=== PATIENT | male | born 1955 | race Caucasian/White ===

== ENCOUNTER 2021-09-18 15:40 | Inpatient (IN) | payer OTHER ==
[2021-09-18 17:34] VITALS: BMI 24.6
[2021-09-18] MEDS ORDERED: BISMUTH SUBSALICYLATE 524 MG/30 ML PO PRN (19:23)
[2021-09-18] MEDS ORDERED: ACETAMINOPHEN 325 MG TABLET (FP) PO PRN ×2 (19:23)
[2021-09-18] MEDS ORDERED: MAG HYDROX/AL HYDROX/SIMETH 30 ML UNIT-DOSE CUP PO PRN (19:23)
[2021-09-18] MEDS ORDERED: ONDANSETRON *ODT* 4 MG TABLET SL PRN (19:23)
[2021-09-18] MEDS ORDERED: NICOTINE 10 MG CARTRIDGE (INHALER) IH PRN (19:23)
[2021-09-18] MEDS ORDERED: MAGNESIUM HYDROX 2400MG/30ML ORAL SUSPENSION 30 ML CUP PO PRN (19:23)
[2021-09-18] MEDS ORDERED: MAGNESIUM CITRATE 300 ML BOTTLE PO PRN (19:23)
[2021-09-18] MEDS ORDERED: MENTHOL/PHENOL 1 EACH UD MM PRN (19:23)
[2021-09-18] MEDS: GABAPENTIN 100 MG CAPSULE PO SCH (22:19)
[2021-09-18] MEDS: ATORVASTATIN CA 80 MG TABLET (FP) PO SCH (22:19)
[2021-09-18] MEDS: THIAMINE HCL 100 MG TABLET (FP) PO SCH (22:20)
[2021-09-18] MEDS: MELATONIN 5 MG TABLETS PO SCH (22:20)
[2021-09-18] MEDS: hydrOXYzine PAMOATE 25 MG CAPSULE (FP) PO SCH (22:20)
[2021-09-18] MEDS: METHYL SALICYLATE/MENTHOL OINT 30 GM TUBE TP SCH (22:21)
[2021-09-19] MEDS: hydrOXYzine PAMOATE 25 MG CAPSULE (FP) PO SCH ×5 (06:52→22:12)
[2021-09-19] MEDS: GABAPENTIN 100 MG CAPSULE PO SCH ×3 (06:52→22:12)
[2021-09-19] MEDS: metFORMIN HCL 500 MG TABLET (FP) PO SCH ×2 (06:53→22:12)
[2021-09-19] MEDS: LEVOTHYROXINE NA 100 MCG TABLET (FP) PO SCH (08:01)
[2021-09-19] MEDS ORDERED: AMMONIUM LACTATE 12% LOTION 225 GM BOTTLE TP PRN (10:00)
[2021-09-19 11:54] LABS: HEMATOCRIT 31.4 % (35.4-49); HEMOGLOBIN 10.4 GM/dL (11.7-16.9); MCH 29.8 pg (25.7-33.7); MCHC 33.2 g/dl (32.0-35.9); PLATELET COUNT 195 10^3/uL (134-434); RBC 3.49 M/mm3 (4.00-5.60); RDW 14.6 % (11.9-15.9); WHITE BLOOD COUNT 8.4 K/mm3 (4.0-10.0)
[2021-09-19 12:13] LABS: CALCIUM 9.3 mg/dL (8.5-10.1)
[2021-09-19] MEDS: LISINOPRIL 5 MG TABLET PO SCH (12:13)
[2021-09-19] MEDS: ASPIRIN COATED 81 MG TABLET.EC PO SCH (12:14)
[2021-09-19] MEDS: PRENATAL VITAMINS W/ FOLIC ACID TABLET (FP) PO SCH (12:14)
[2021-09-19] MEDS: METHYL SALICYLATE/MENTHOL OINT 30 GM TUBE TP SCH ×2 (12:15→22:35)
[2021-09-19] MEDS: FLUTICASONE PROP 0.05% 16 GM NASAL SPRAY NS SCH (12:15)
[2021-09-19 12:16] LABS: CREATININE 1.4 mg/dL (0.55-1.3)
[2021-09-19 12:18] LABS: BILIRUBIN,TOTAL 0.3 mg/dL (0.2-1); TOT PROT 6.8 g/dl (6.4-8.2)
[2021-09-19] MEDS ORDERED: cloNIDine HCL 0.1 MG TABLET PO PRN (13:09)
[2021-09-19] MEDS ORDERED: clonazePAM 0.5 MG ODT TABLETS SL PRN (13:09)
[2021-09-19] MEDS ORDERED: methaDONE HCL 10 MG TABLET (FOR DETOX USE ONLY) PO ONE (13:45)
[2021-09-19] MEDS: ATORVASTATIN CA 80 MG TABLET (FP) PO SCH (22:12)
[2021-09-19] MEDS: MELATONIN 5 MG TABLETS PO SCH (22:12)
[2021-09-19] MEDS: THIAMINE HCL 100 MG TABLET (FP) PO SCH (22:12)
[2021-09-20] MEDS: GABAPENTIN 100 MG CAPSULE PO SCH ×3 (06:10→22:36)
[2021-09-20] MEDS: hydrOXYzine PAMOATE 25 MG CAPSULE (FP) PO SCH ×5 (06:10→22:36)
[2021-09-20] MEDS: metFORMIN HCL 500 MG TABLET (FP) PO SCH ×2 (06:10→22:36)
[2021-09-20] MEDS: LEVOTHYROXINE NA 100 MCG TABLET (FP) PO SCH (06:23)
[2021-09-20] MEDS ORDERED: methaDONE HCL 10 MG TABLET (FOR DETOX USE ONLY) ONE (10:01)
[2021-09-20] MEDS: LISINOPRIL 5 MG TABLET PO SCH (10:57)
[2021-09-20] MEDS: ASPIRIN COATED 81 MG TABLET.EC PO SCH (10:58)
[2021-09-20] MEDS: PRENATAL VITAMINS W/ FOLIC ACID TABLET (FP) PO SCH (10:58)
[2021-09-20] MEDS: METHOCARBAMOL 500 MG TABLET PO PRN (10:58)
[2021-09-20] MEDS: METHYL SALICYLATE/MENTHOL OINT 30 GM TUBE TP SCH ×2 (11:00→22:38)
[2021-09-20] MEDS: FLUTICASONE PROP 0.05% 16 GM NASAL SPRAY NS SCH (13:42)
[2021-09-20] MEDS ORDERED: PENICILLIN G BENZATHINE 2,400,000 UNIT/4 ML PFS IM ONE (17:42)
[2021-09-20] MEDS: ATORVASTATIN CA 80 MG TABLET (FP) PO SCH (22:36)
[2021-09-20] MEDS: THIAMINE HCL 100 MG TABLET (FP) PO SCH (22:36)
[2021-09-20] MEDS: MELATONIN 5 MG TABLETS PO SCH (22:36)
[2021-09-21] MEDS: GABAPENTIN 100 MG CAPSULE PO SCH ×3 (06:33→22:40)
[2021-09-21] MEDS: hydrOXYzine PAMOATE 25 MG CAPSULE (FP) PO SCH ×5 (06:33→22:40)
[2021-09-21] MEDS: LEVOTHYROXINE NA 100 MCG TABLET (FP) PO SCH (06:33)
[2021-09-21] MEDS: metFORMIN HCL 500 MG TABLET (FP) PO SCH ×2 (06:33→22:40)
[2021-09-21] MEDS ORDERED: methaDONE HCL 10 MG TABLET (FOR DETOX USE ONLY) PO ONE (10:00)
[2021-09-21] MEDS: PRENATAL VITAMINS W/ FOLIC ACID TABLET (FP) PO SCH (10:09)
[2021-09-21] MEDS: LISINOPRIL 5 MG TABLET PO SCH (10:09)
[2021-09-21] MEDS: ASPIRIN COATED 81 MG TABLET.EC PO SCH (10:10)
[2021-09-21] MEDS: FLUTICASONE PROP 0.05% 16 GM NASAL SPRAY NS SCH (10:10)
[2021-09-21] MEDS: METHYL SALICYLATE/MENTHOL OINT 30 GM TUBE TP SCH ×2 (10:51→23:12)
[2021-09-21] MEDS ORDERED: MASKS NR ONE (16:22)
[2021-09-21] MEDS: ATORVASTATIN CA 80 MG TABLET (FP) PO SCH (22:40)
[2021-09-21] MEDS: MELATONIN 5 MG TABLETS PO SCH (22:40)
[2021-09-21] MEDS: THIAMINE HCL 100 MG TABLET (FP) PO SCH (22:40)
[2021-09-22] MEDS: hydrOXYzine PAMOATE 25 MG CAPSULE (FP) PO SCH ×6 (05:50→22:00)
[2021-09-22] MEDS: GABAPENTIN 100 MG CAPSULE PO SCH ×3 (05:50→22:00)
[2021-09-22] MEDS: METHOCARBAMOL 500 MG TABLET PO PRN (05:57)
[2021-09-22] MEDS: LEVOTHYROXINE NA 100 MCG TABLET (FP) PO SCH (06:02)
[2021-09-22] MEDS: metFORMIN HCL 500 MG TABLET (FP) PO SCH ×3 (06:02→22:00)
[2021-09-22] MEDS ORDERED: methaDONE HCL 10 MG TABLET (FOR DETOX USE ONLY) ONE (09:55)
[2021-09-22] MEDS: FLUTICASONE PROP 0.05% 16 GM NASAL SPRAY NS SCH (10:46)
[2021-09-22] MEDS: LISINOPRIL 5 MG TABLET PO SCH (10:46)
[2021-09-22] MEDS: ASPIRIN COATED 81 MG TABLET.EC PO SCH (10:46)
[2021-09-22] MEDS: METHYL SALICYLATE/MENTHOL OINT 30 GM TUBE TP SCH ×2 (10:46→22:00)
[2021-09-22] MEDS: PRENATAL VITAMINS W/ FOLIC ACID TABLET (FP) PO SCH (10:47)
[2021-09-22] MEDS: ATORVASTATIN CA 80 MG TABLET (FP) PO SCH (22:00)
[2021-09-22] MEDS: MELATONIN 5 MG TABLETS PO SCH (22:00)
[2021-09-22] MEDS: THIAMINE HCL 100 MG TABLET (FP) PO SCH (22:00)
[2021-09-23] MEDS: LEVOTHYROXINE NA 100 MCG TABLET (FP) PO SCH (06:17)
[2021-09-23] MEDS: GABAPENTIN 100 MG CAPSULE PO SCH ×3 (06:17→22:04)
[2021-09-23] MEDS: metFORMIN HCL 500 MG TABLET (FP) PO SCH ×2 (06:17→22:04)
[2021-09-23] MEDS: hydrOXYzine PAMOATE 25 MG CAPSULE (FP) PO SCH ×5 (06:17→22:04)
[2021-09-23] MEDS ORDERED: methaDONE HCL 10 MG TABLET (FOR DETOX USE ONLY) PO ONE (10:00)
[2021-09-23] MEDS: PRENATAL VITAMINS W/ FOLIC ACID TABLET (FP) PO SCH (10:10)
[2021-09-23] MEDS: ASPIRIN COATED 81 MG TABLET.EC PO SCH (10:11)
[2021-09-23] MEDS: LISINOPRIL 5 MG TABLET PO SCH (10:11)
[2021-09-23] MEDS: METHOCARBAMOL 500 MG TABLET PO PRN (10:11)
[2021-09-23] MEDS: FLUTICASONE PROP 0.05% 16 GM NASAL SPRAY NS SCH (10:11)
[2021-09-23] MEDS: METHYL SALICYLATE/MENTHOL OINT 30 GM TUBE TP SCH ×2 (10:18→22:04)
[2021-09-23] MEDS: ATORVASTATIN CA 80 MG TABLET (FP) PO SCH (22:04)
[2021-09-23] MEDS: THIAMINE HCL 100 MG TABLET (FP) PO SCH (22:04)
[2021-09-23] MEDS: MELATONIN 5 MG TABLETS PO SCH (22:05)
[2021-09-24] MEDS: hydrOXYzine PAMOATE 25 MG CAPSULE (FP) PO SCH ×4 (06:02→17:08)
[2021-09-24] MEDS: LEVOTHYROXINE NA 100 MCG TABLET (FP) PO SCH (06:03)
[2021-09-24] MEDS: GABAPENTIN 100 MG CAPSULE PO SCH ×3 (06:03→22:26)
[2021-09-24] MEDS: metFORMIN HCL 500 MG TABLET (FP) PO SCH ×2 (06:09→22:26)
[2021-09-24] MEDS: LISINOPRIL 5 MG TABLET PO SCH (10:10)
[2021-09-24] MEDS: PRENATAL VITAMINS W/ FOLIC ACID TABLET (FP) PO SCH (10:10)
[2021-09-24] MEDS: ASPIRIN COATED 81 MG TABLET.EC PO SCH (10:10)
[2021-09-24] MEDS: FLUTICASONE PROP 0.05% 16 GM NASAL SPRAY NS SCH (10:10)
[2021-09-24] MEDS: METHYL SALICYLATE/MENTHOL OINT 30 GM TUBE TP SCH ×2 (10:11→22:31)
[2021-09-24] MEDS: THIAMINE HCL 100 MG TABLET (FP) PO SCH (22:26)
[2021-09-24] MEDS: MELATONIN 5 MG TABLETS PO SCH (22:26)
[2021-09-24] MEDS: ATORVASTATIN CA 80 MG TABLET (FP) PO SCH (22:26)
[2021-09-25] MEDS: GABAPENTIN 100 MG CAPSULE PO SCH ×2 (05:42→13:51)
[2021-09-25] MEDS: LEVOTHYROXINE NA 100 MCG TABLET (FP) PO SCH (06:45)
[2021-09-25] MEDS: metFORMIN HCL 500 MG TABLET (FP) PO SCH (07:57)
[2021-09-25] MEDS: ASPIRIN COATED 81 MG TABLET.EC PO SCH (10:18)
[2021-09-25] MEDS: FLUTICASONE PROP 0.05% 16 GM NASAL SPRAY NS SCH (10:18)
[2021-09-25] MEDS: METHYL SALICYLATE/MENTHOL OINT 30 GM TUBE TP SCH (10:19)
[2021-09-25] MEDS: LISINOPRIL 5 MG TABLET PO SCH (10:19)
[2021-09-25] MEDS: PRENATAL VITAMINS W/ FOLIC ACID TABLET (FP) PO SCH (10:19)
[2021-09-25 12:32] VITALS: BP 122/77; PULSE 86; TEMP 97.1
== END 2021-09-25 14:00 | disposition other institution (70) | DRG 897 ==
LOC: YASAS 15:40 → UNDOADMIN 20:51 → Y3N 20:51
PROVIDERS: ADMIT Allergy & Immunology; ATTEND Allergy & Immunology
PROC: HZ2ZZZZ Detoxification Services for Substance Abuse Treatment (ICD-10-PCS; principal; 2021-09-18)
DX: F11.23 Opioid dependence with withdrawal (principal); F14.20 Cocaine dependence, uncomplicated; F17.210 Nicotine dependence, cigarettes, uncomplicated; A53.0 Latent syphilis, unspecified as early or late; I10 Essential (primary) hypertension; E78.5 Hyperlipidemia, unspecified; E03.9 Hypothyroidism, unspecified; E11.42 Type 2 diabetes mellitus with diabetic polyneuropathy; K21.9 Gastro-esophageal reflux disease without esophagitis; M17.0 Bilateral primary osteoarthritis of knee; Z79.84 Long term (current) use of oral hypoglycemic drugs; Z98.890 Other specified postprocedural states
CPT/HCPCS: 36415; 80053; 82962; 85027; 86593; 86780; 93005; 93010; C9803; U0003; U0005

== ENCOUNTER 2021-09-25 13:11 | Inpatient (IN) | payer OTHER ==
[2021-09-25] MEDS ORDERED: MENTHOL/PHENOL 1 EACH UD MM PRN (13:30)
[2021-09-25] MEDS ORDERED: ACETAMINOPHEN 325 MG TABLET (FP) PO PRN (13:30)
[2021-09-25] MEDS ORDERED: LOPERAMIDE HCL 2 MG CAPSULE PO PRN (13:30)
[2021-09-25] MEDS ORDERED: MAGNESIUM HYDROX 2400MG/30ML ORAL SUSPENSION 30 ML CUP PO PRN (13:30)
[2021-09-25] MEDS ORDERED: IBUPROFEN 400 MG TABLET (FP) PO PRN (13:30)
[2021-09-25] MEDS ORDERED: NICOTINE 10 MG CARTRIDGE (INHALER) IH PRN (13:30)
[2021-09-25] MEDS ORDERED: MAGNESIUM CITRATE 300 ML BOTTLE PO PRN (13:30)
[2021-09-25] MEDS ORDERED: guaiFENesin 200 MG/10 ML 10 ML UNIT-DOSE CUPS PO PRN (13:30)
[2021-09-25] MEDS ORDERED: MAG HYDROX/AL HYDROX/SIMETH 30 ML UNIT-DOSE CUP PO PRN (13:30)
[2021-09-25 14:37] VITALS: TEMP 97.7
[2021-09-25] MEDS: GABAPENTIN 100 MG CAPSULE PO SCH ×2 (14:39→21:39)
[2021-09-25] MEDS: metFORMIN HCL 500 MG TABLET (FP) PO SCH (17:59)
[2021-09-25] MEDS ORDERED: THIAMINE HCL 100 MG TABLET (FP) PO SCH (22:00)
[2021-09-25] MEDS ORDERED: MELATONIN 5 MG TABLETS PO SCH (22:00)
[2021-09-25] MEDS ORDERED: ATORVASTATIN CA 80 MG TABLET (FP) PO SCH (22:00)
[2021-09-26] MEDS ORDERED: LEVOTHYROXINE NA 100 MCG TABLET (FP) PO SCH (07:00)
[2021-09-26] MEDS: GABAPENTIN 100 MG CAPSULE PO SCH (07:02)
[2021-09-26] MEDS ORDERED: PT OWN MED DRAWER 7, Y5N ONE (07:07)
[2021-09-26] MEDS: metFORMIN HCL 500 MG TABLET (FP) PO SCH (07:55)
[2021-09-26] MEDS ORDERED: ASPIRIN COATED 81 MG TABLET.EC PO SCH (10:00)
[2021-09-26] MEDS ORDERED: NICOTINE 7 MG/24 HOURS TOPICAL PATCH TD SCH (10:00)
[2021-09-26] MEDS ORDERED: FLUTICASONE PROP 0.05% 16 GM NASAL SPRAY NS SCH (10:00)
[2021-09-26] MEDS ORDERED: LISINOPRIL 5 MG TABLET PO SCH (10:00)
[2021-09-26] MEDS ORDERED: PRENATAL VITAMINS W/ FOLIC ACID TABLET (FP) PO SCH (10:00)
[2021-09-26 10:06] VITALS: BP 135/85; PULSE 70
[2021-09-27] MEDS ORDERED: PENICILLIN G BENZATHINE 2,400,000 UNIT/4 ML PFS IM ONE (10:00)
[2021-10-04] MEDS ORDERED: PENICILLIN G BENZATHINE 2,400,000 UNIT/4 ML PFS IM ONE (10:00)
== END 2021-09-26 14:00 | disposition left against medical advice (07) | DRG 894 ==
LOC: YASAS 13:11 → Y3E 13:14
PROVIDERS: ADMIT Allergy & Immunology; ATTEND Allergy & Immunology
PROC: HZ42ZZZ Group Counseling for Substance Abuse Treatment, Cognitive-Behavioral (ICD-10-PCS; principal; 2021-09-25)
DX: F11.23 Opioid dependence with withdrawal (principal); F14.20 Cocaine dependence, uncomplicated; F17.210 Nicotine dependence, cigarettes, uncomplicated; A53.0 Latent syphilis, unspecified as early or late
CPT/HCPCS: 82962

== ENCOUNTER 2021-12-06 11:30 | Inpatient (IN) | payer OTHER ==
[2021-12-06] MEDS ORDERED: IBUPROFEN 400 MG TABLET (FP) PO PRN (13:16)
[2021-12-06] MEDS ORDERED: MENTHOL/PHENOL 1 EACH UD MM PRN (13:16)
[2021-12-06] MEDS ORDERED: MAG HYDROX/AL HYDROX/SIMETH 30 ML UNIT-DOSE CUP PO PRN (13:16)
[2021-12-06] MEDS ORDERED: MAGNESIUM CITRATE 300 ML BOTTLE PO PRN (13:16)
[2021-12-06] MEDS ORDERED: MAGNESIUM HYDROX 2400MG/30ML ORAL SUSPENSION 30 ML CUP PO PRN (13:16)
[2021-12-06] MEDS ORDERED: BISMUTH SUBSALICYLATE 262 MG/15 ML BTL PO PRN (13:16)
[2021-12-06] MEDS ORDERED: ACETAMINOPHEN 325 MG TABLET (FP) PO PRN ×2 (13:16)
[2021-12-06 13:58] VITALS: BMI 22.9
[2021-12-06] MEDS: PRENATAL VITAMINS W/ FOLIC ACID TABLET (FP) PO SCH (15:08)
[2021-12-06 15:11] LABS: HEMATOCRIT 29.3 % (35.4-49); HEMOGLOBIN 9.8 GM/dL (11.7-16.9); MCHC 33.3 g/dl (32.0-35.9); MEAN CELL VOLUME 90.2 fl (80-96); MEAN PLT VOLUME 8.3 fl (7.5-11.1); PLATELET COUNT 220 10^3/uL (134-434); RBC 3.25 M/mm3 (4.00-5.60); RDW 15.4 % (11.9-15.9); WHITE BLOOD COUNT 6.6 K/mm3 (4.0-10.0)
[2021-12-06 15:22] LABS: ALBUMIN 3.8 g/dl (3.4-5.0); BLOOD UREA NITROGEN 23.4 mg/dL (7-18); CALCIUM 9.4 mg/dL (8.5-10.1)
[2021-12-06] MEDS: hydrOXYzine PAMOATE 25 MG CAPSULE (FP) PO SCH ×3 (15:23→23:15)
[2021-12-06 15:25] LABS: CREATININE 1.4 mg/dL (0.55-1.3)
[2021-12-06 15:27] LABS: BILIRUBIN,TOTAL 0.3 mg/dL (0.2-1); TOT PROT 7.6 g/dl (6.4-8.2)
[2021-12-06] MEDS: THIAMINE HCL 100 MG TABLET (FP) PO SCH (23:15)
[2021-12-06] MEDS: MELATONIN 5 MG TABLETS PO SCH (23:15)
[2021-12-07] MEDS: hydrOXYzine PAMOATE 25 MG CAPSULE (FP) PO SCH ×5 (05:58→22:58)
[2021-12-07] MEDS ORDERED: cloNIDine HCL 0.1 MG TABLET PO PRN (11:28)
[2021-12-07] MEDS ORDERED: methaDONE HCL 10 MG TABLET (FOR DETOX USE ONLY) PO ONE (12:15)
[2021-12-07] MEDS: ASPIRIN COATED 81 MG TABLET.EC PO SCH (12:18)
[2021-12-07] MEDS: metFORMIN HCL 500 MG TABLET (FP) PO SCH ×2 (12:18→17:45)
[2021-12-07] MEDS: METHOCARBAMOL 500 MG TABLET PO PRN (12:18)
[2021-12-07] MEDS: LISINOPRIL 5 MG TABLET PO SCH (12:19)
[2021-12-07] MEDS: PRENATAL VITAMINS W/ FOLIC ACID TABLET (FP) PO SCH (12:19)
[2021-12-07] MEDS: FLUTICASONE PROP 0.05% 16 GM NASAL SPRAY NS SCH (12:21)
[2021-12-07] MEDS: GABAPENTIN 100 MG CAPSULE PO SCH ×2 (14:37→22:58)
[2021-12-07] MEDS: ONDANSETRON *ODT* 4 MG TABLET SL PRN (17:34)
[2021-12-07] MEDS: ATORVASTATIN CA 80 MG TABLET (FP) PO SCH (22:58)
[2021-12-07] MEDS: THIAMINE HCL 100 MG TABLET (FP) PO SCH (22:58)
[2021-12-07] MEDS: MELATONIN 5 MG TABLETS PO SCH (22:58)
[2021-12-08] MEDS: ONDANSETRON *ODT* 4 MG TABLET SL PRN (01:12)
[2021-12-08] MEDS: metFORMIN HCL 500 MG TABLET (FP) PO SCH ×2 (06:40→18:11)
[2021-12-08] MEDS: hydrOXYzine PAMOATE 25 MG CAPSULE (FP) PO SCH ×5 (06:40→22:25)
[2021-12-08] MEDS: LEVOTHYROXINE NA 100 MCG TABLET (FP) PO SCH (06:41)
[2021-12-08] MEDS: GABAPENTIN 100 MG CAPSULE PO SCH ×3 (06:41→22:25)
[2021-12-08] MEDS ORDERED: methaDONE HCL 10 MG TABLET (FOR DETOX USE ONLY) ONE (09:07)
[2021-12-08] MEDS: FLUTICASONE PROP 0.05% 16 GM NASAL SPRAY NS SCH (10:58)
[2021-12-08] MEDS: METHOCARBAMOL 500 MG TABLET PO PRN (10:59)
[2021-12-08] MEDS: ASPIRIN COATED 81 MG TABLET.EC PO SCH (10:59)
[2021-12-08] MEDS: LISINOPRIL 5 MG TABLET PO SCH (10:59)
[2021-12-08] MEDS: PRENATAL VITAMINS W/ FOLIC ACID TABLET (FP) PO SCH (11:00)
[2021-12-08] MEDS: ATORVASTATIN CA 80 MG TABLET (FP) PO SCH (22:25)
[2021-12-08] MEDS: MELATONIN 5 MG TABLETS PO SCH (22:25)
[2021-12-08] MEDS: THIAMINE HCL 100 MG TABLET (FP) PO SCH (22:25)
[2021-12-09] MEDS: GABAPENTIN 100 MG CAPSULE PO SCH ×3 (05:33→22:40)
[2021-12-09] MEDS: hydrOXYzine PAMOATE 25 MG CAPSULE (FP) PO SCH ×5 (05:33→22:41)
[2021-12-09] MEDS: LEVOTHYROXINE NA 100 MCG TABLET (FP) PO SCH (06:57)
[2021-12-09] MEDS: metFORMIN HCL 500 MG TABLET (FP) PO SCH ×2 (06:57→17:54)
[2021-12-09] MEDS ORDERED: methaDONE HCL 10 MG TABLET (FOR DETOX USE ONLY) PO ONE (10:00)
[2021-12-09] MEDS: PRENATAL VITAMINS W/ FOLIC ACID TABLET (FP) PO SCH (10:21)
[2021-12-09] MEDS: ASPIRIN COATED 81 MG TABLET.EC PO SCH (10:21)
[2021-12-09] MEDS: METHOCARBAMOL 500 MG TABLET PO PRN (10:22)
[2021-12-09] MEDS: LISINOPRIL 5 MG TABLET PO SCH (10:22)
[2021-12-09] MEDS: FLUTICASONE PROP 0.05% 16 GM NASAL SPRAY NS SCH (10:22)
[2021-12-09] MEDS: THIAMINE HCL 100 MG TABLET (FP) PO SCH (22:39)
[2021-12-09] MEDS: ATORVASTATIN CA 80 MG TABLET (FP) PO SCH (22:40)
[2021-12-09] MEDS: MELATONIN 5 MG TABLETS PO SCH (22:41)
[2021-12-10] MEDS: GABAPENTIN 100 MG CAPSULE PO SCH (05:50)
[2021-12-10] MEDS: hydrOXYzine PAMOATE 25 MG CAPSULE (FP) PO SCH ×2 (05:50→10:45)
[2021-12-10] MEDS: LEVOTHYROXINE NA 100 MCG TABLET (FP) PO SCH (06:28)
[2021-12-10] MEDS: metFORMIN HCL 500 MG TABLET (FP) PO SCH (06:28)
[2021-12-10 09:22] VITALS: BP 119/73; PULSE 126; TEMP 97.7
[2021-12-10] MEDS: ASPIRIN COATED 81 MG TABLET.EC PO SCH (10:45)
[2021-12-10] MEDS: PRENATAL VITAMINS W/ FOLIC ACID TABLET (FP) PO SCH (10:45)
[2021-12-10] MEDS: FLUTICASONE PROP 0.05% 16 GM NASAL SPRAY NS SCH (10:45)
[2021-12-10] MEDS: LISINOPRIL 5 MG TABLET PO SCH (10:45)
[2021-12-11] MEDS ORDERED: methaDONE HCL 10 MG TABLET (FOR DETOX USE ONLY) PO ONE (10:00)
== END 2021-12-10 09:37 | disposition left against medical advice (07) | DRG 894 ==
LOC: YASAS 11:30 → Y6N 14:06
PROVIDERS: ADMIT Allergy & Immunology; ATTEND Allergy & Immunology
PROC: HZ2ZZZZ Detoxification Services for Substance Abuse Treatment (ICD-10-PCS; principal; 2021-12-06)
DX: F11.23 Opioid dependence with withdrawal (principal); F14.20 Cocaine dependence, uncomplicated; F17.210 Nicotine dependence, cigarettes, uncomplicated; D64.9 Anemia, unspecified; E03.9 Hypothyroidism, unspecified; E78.5 Hyperlipidemia, unspecified; E11.42 Type 2 diabetes mellitus with diabetic polyneuropathy; Z79.84 Long term (current) use of oral hypoglycemic drugs; I10 Essential (primary) hypertension; K21.9 Gastro-esophageal reflux disease without esophagitis; M17.0 Bilateral primary osteoarthritis of knee; Z86.19 Personal history of other infectious and parasitic diseases
CPT/HCPCS: 36415; 80053; 82962; 85027; 86593; 86780; C9803; Q0162; U0003; U0005